=== PATIENT | female | born 1945 | race Hispanic/Latino ===

== ENCOUNTER → 2019-03-16 | Outpatient (CLI) | payer MEDICARE ==
[~2019-03-16] MED LIST: ASPIR 8181 MG PO; CARVEDILOL3.125 MG PO; CITALOPRAM HBR20 MG PO; GLIPIZIDE5 MG PO; JANUVIA100 MG PO; LANTUS100 UNITS/ SQ; LISINOPRIL10 MG PO; OMEPRAZOLE40 MG PEG; PRAVASTATIN SOD20 MG PO; PREDNISONE 30 MG; PREDNISONE10 MG PO; PYRIDOSTIGMINE PO; VITAMIN D3 PO; Z.0.ENALAPRIL MALEA2 PO; Z.0.GLYBURIDE5 MG PO; Z.0.MELOXICAM15 MG PO; Z.0.PREDNISONE10 MG PO; Z.0.SIMVASTATIN40 MG PO; Z.1.METFORMIN HCL100 PO
== END ==
LOC: CARD 09:31 → EDSEX 09:31
PROVIDERS: ATTEND Podiatrist Foot & Ankle Surgery
DX: E11.621 Type 2 diabetes mellitus with foot ulcer (principal); L97.529 Non-pressure chronic ulcer of other part of left foot with unspecified severity
CPT/HCPCS: 93925

== ENCOUNTER 2019-03-19 13:55 | Outpatient (RCR) | payer OTHER ==
[2019-03-12 16:10] LABS: HEMATOCRIT 32.5 % (38.2-49.6); HEMOGLOBIN 9.9 g/dL (14.0-18.0); MEAN CORPUSCULAR HEMOGLOBIN 27.5 pg (28-32); MEAN CORPUSCULAR HGB CONC 30.5 g/dL (31-35); MEAN CORPUSCULAR VOLUME 90.3 fL (81-99); PLATELET COUNT 173 x10e3/uL (140-360); RED CELL DISTRIBUTION WIDTH 14.5 % (11.7-14.4)
[2019-03-12 16:32] LABS: ALBUMIN 3.2 g/dL (3.5-5.0); ANION GAP 14.6 mmol/L (8-16); CREATININE, SERUM 1.66 mg/dL (0.72-1.25); POTASSIUM 4.6 mmol/L (3.5-5.1)
[2019-03-12 21:11] LABS: LYMPHOCYTES % (MANUAL) 5 % (19-48); MONOCYTES % (MANUAL) 1 % (3.4-9.0); NEUTROPHILS % (MANUAL) 91 % (40-74)
[2019-03-12 21:12] LABS: PLATELET ESTIMATE ADEQUATE; PLATELET MORPHOLOGY COMMENT NORMAL; RBC MORPHOLOGY COMMENT NORMAL
[~2019-03-19 13:55] MED LIST changes: +LIDOCAINE/PRILOCAINE 2.5-2.5% KIT ONE
[2019-03-19] MEDS ORDERED: CADEXOMER IODINE 30 GM TUBE ONE (18:12)
== END 2019-03-20 ==
LOC: EDSEX → WCC 13:55
PROVIDERS: ATTEND Podiatrist Foot & Ankle Surgery
DX: E11.621 Type 2 diabetes mellitus with foot ulcer (principal); E10.9 Type 1 diabetes mellitus without complications; L97.529 Non-pressure chronic ulcer of other part of left foot with unspecified severity; E66.01 Morbid (severe) obesity due to excess calories; Z79.4 Long term (current) use of insulin; F17.200 Nicotine dependence, unspecified, uncomplicated
CPT/HCPCS: 36415; 80053; 83036; 84134; 85007; 85027; 85651; 86140; 87071; 87075; 87186; 87205

== ENCOUNTER → 2019-04-09 | Day surgery (SDC) | payer MEDICARE ==
[2019-04-04 10:22] LABS: BASOPHILS # (AUTO) 0.1 (0.0-0.1); EOSINOPHILS # (AUTO) 0.3 (0.0-0.4); EOSINOPHILS % 3.8 % (0.0-6.0); HEMATOCRIT 33.2 % (34.2-44.1); HEMOGLOBIN 10.1 g/dL (12.0-16.0); LYMPHOCYTES # (AUTO) 1.5 (1.0-3.2); LYMPHOCYTES % 17.9 % (18.0-39.1); MEAN CORPUSCULAR HEMOGLOBIN 27.1 pg (28-32); MEAN CORPUSCULAR HGB CONC 30.4 g/dL (31-35); MONOCYTES # (AUTO) 0.7 (0.2-0.8); MONOCYTES % 8.1 % (4.4-11.3); NEUTROPHILS # (AUTO) 5.6 (2.1-6.9); NEUTROPHILS % 67.7 % (38.7-80.0); PLATELET COUNT 193 x10e3/uL (140-360); RED BLOOD COUNT 3.73 x10e6/uL (3.6-5.1); RED CELL DISTRIBUTION WIDTH 14.2 % (11.7-14.4)
[2019-04-04 10:29] LABS: INR 0.87; PROTHROMBIN TIME 12.3 seconds (11.9-14.5)
[2019-04-04 10:36] LABS: ALBUMIN 3.2 g/dL (3.5-5.0); ANION GAP 13.5 mmol/L (8-16); CALCIUM 9.7 mg/dL (8.4-10.2); CREATININE, SERUM 1.36 mg/dL (0.57-1.11); POTASSIUM 4.5 mmol/L (3.5-5.1)
[~2019-04-09] VITALS: Ht 162.6 cm; Wt 119.7 kg
[2019-04-09] VITALS (13 sets, daily range): BP systolic 101–171; BP diastolic 52–85
[~2019-04-09] MED LIST changes: +ATROPINE SULFATE 0.1 MG/ML 10ML SYR ONE; +BASAGLAR INSULIN SQ; +FENTANYL CITRATE/PF 100MCG/2 ML INJ ONE; +HEPARIN SOD/SOD CHLORIDE 2,000 ML ONE; +HYDRALAZINE HCL 20 MG/ML VIAL ONE; +IOPAMIDOL 300MG/ML 100 ML INFUS..BTL IV ONE; +LIDOCAINE HCL 2% LOCAL 20 ML VIAL ONE; -LIDOCAINE/PRILOCAINE 2.5-2.5% KIT ONE; +MIDAZOLAM HCL 2 MG/2 ML VIAL ONE; +NOVOLOG100 UNITS1 SQ; -OMEPRAZOLE40 MG PEG; +OMEPRAZOLE40 MG PO; +SODIUM CHLORIDE 0.9% 1000ML 1,000 ML ONE; +VERAPAMIL HCL 2.5 MG/ML 2 ML VIAL ONE
--- OUTSIDE RECORDS SUMMARY | 2019-04-09 07:39 | XMS REPORT ---
Author Author [facility] Address Unknown Phone Unavailable Care Team Providers Care Engraver Tender Name Role Phone Unavailable Unavailable Problems This patient has no known problems. Allergies, Adverse Reactions, Alerts This patient has no known allergies or adverse reactions. Medications This patient has no known medications. Encounters Start Date/Time End Date/Time Encounter Type Admission Type Attending [facility] Facility Care Department Encounter ID 2019-03-02 10:00:00 2019-03-02 10:00:00 Outpatient [facility] [id number]
--- OUTSIDE RECORDS SUMMARY | 2019-04-09 07:39 | XMS REPORT | Clinical Summary ---
Author Author [facility] Address Unknown Phone Unavailable Care Team Providers Care Chemist Assistant Name Role Phone Darlin Armstrong MD PCP Allergies Comments Active Allergy Reactions Severity Noted Date Azithromycin Anaphylaxis High 05/14/2016 Medications End Date Status Medication Sig Dispensed Refills Start Date Active aspirin (ECOTRIN) 81 MG Take 81 mg by 0 enteric coated tablet mouth daily. Active FLUTICASONE/VILANTEROL Inhale. 0 (BREO ELLIPTA INHL) Active carvedilol (COREG) 3.125 Take 3.125 mg 0 MG tablet by mouth 2 (two) times a day with meals. Active citalopram (CeleXA) 20 MG Take 20 mg by 0 tablet mouth daily. Active glipiZIDE (GLUCOTROL) 5 Take 5 mg by 0 MG tablet mouth 2 (two) times a day before meals. Active lisinopril Take 10 mg by 0 (PRINIVIL,ZESTRIL) 10 MG mouth daily. tablet Active metFORMIN (GLUCOPHAGE) Take 1,000 mg 0 1000 MG tablet by mouth 2 (two) times a day with meals. Active omeprazole (PriLOSEC) 40 Take 40 mg by 0 MG capsule mouth daily. Active potassium chloride Take 10 mEq 0 (K-DUR,KLOR-CON) 10 MEQ by mouth CR tablet daily. Active pravastatin (PRAVACHOL) Take 20 mg by 0 20 MG tablet mouth nightly. Active albuterol (PROVENTIL Inhale 1 puff 0 HFA;VENTOLIN HFA) 90 every 6 (six) mcg/actuation inhaler hours as needed for wheezing. Active ERGOCALCIFEROL, VITAMIN Take 1 tablet 0 D2, (VITAMIN D2 ORAL) by mouth daily. Active Problems No known active problems Social History Date Tobacco Use Types Packs/Day Years Used Never Smoker Smokeless Tobacco: Never Used Tobacco Cessation: Counseling Given: No Alcohol Use Drinks/Week oz/Week Comments No Sex Assigned at Date Recorded Not on file Industry Job Start Date Occupation Not on file Not on file Not on file Travel End Travel History Travel Start No recent travel history available. Last Filed Vital Signs Not on file Plan of Treatment Health Maintenance Due Date Last Done Comments BREAST CANCER SCREENING 1997 COLON CANCER SCREENING 1997 SHINGLES VACCINES (#1) 1997 65+ PNEUMOCOCCAL VACCINE 2012 (1 of 2 - PCV13) PNEUMOCOCCAL 2012 POLYSACCHARIDE VACCINE AGE 65 AND OVER INFLUENZA VACCINE 06/21/2019 Results Not on fileafter 04/08/2018 Insurance Type Payer Benefit Subscriber ID Effective Phone Address Plan / Dates Group HMO [employer] TEX[employer] xxxxxxxxx 2015-P [address] ([place] [place] [address] Advance Directives Patient has advance care planning documents on file. For more information, ruth powell contact: [facility] [address] [place] [address]
--- NOTE | 2019-04-09 13:00 | NUR ---
bedside report received from Saundra MURPHY. Alert oriented and appropriate, PERRLA, respirations even and unlabored to room air. Pulses x4 extremities equal and palpable. Cap fill brisk < 3 sec. Skin warm and dry integrity appears intact. IV 20g to XXX presents healthy w/o s/s of infiltration or complaint. Abdomen soft and supple. Family at bedside . Pt and family verbalizes understanding of POC. bedside monitoring in use. Right groin checked , gross firmness from dressing to medial inguinal approximately 4 cm x 12cm along inguinal line. Typical bruising color seen under skin. Findings not found when compared to left groin. Immediate pressure applied over expected arteriotomy and 2nd RN to bedside for evaluation. During focused pressure over expected arteriotomy pt began to bare down and immediately experienced a vagal response with HR decreasing o 15bpm on monitor. Atropine called for, suction of oral cavity, pt with upper limp jerking movements, family excused from room. Episode duration less than 20 seconds with pt recovering HR to mid 90's with sbp > 180. atropine withheld. additional hands to groin to reduce hematoma. pt placed in Trendelenburg position. Dr Randall notified of these findings by Sue MURPHY, continuing close monitoring
--- NOTE | 2019-04-09 13:20 | NUR ---
15 minutes of femoral pressure proved sufficient to control hematoma and to reduce to tactile evaluation. pt removed from Trendelenburg and instructed not to raise head. Family allowed back to be with patient.
--- NOTE | 2019-04-09 19:14 | Operative Report ---
DATE OF PROCEDURE: SURGEON: Rivera Randall DO PROCEDURES PERFORMED: 1. Conscious sedation, 90 minutes. 2. Abdominal aortography. 3. Third-order peripheral angiography of the left lower extremity. 4. Unilateral extremity angiography. 5. Atherectomy and percutaneous transluminal angioplasty of the left superficial femoral artery. 6. Attempted angioplasty of the left posterior tibial artery. PREPROCEDURE DIAGNOSIS: Peripheral arterial disease with ulcer. POSTPROCEDURE DIAGNOSIS: Peripheral arterial disease with ulcer. ESTIMATED BLOOD LOSS: Less than 20 mL. SPECIMENS REMOVED: None. PROCEDURE IN DETAIL: After informed consent was obtained, the patient was brought to the cardiac catheterization laboratory in a fasting and nonsedated state. Bilateral groins were prepped and draped in the usual sterile fashion. Using ultrasound guidance, the right common femoral artery was accessed via modified Seldinger technique and a 6-St Helenian sheath was placed. Abdominal aortography was performed. This Omni Flush catheter was taken up and third-order peripheral angiography was performed. Next, an Advantage wire was inserted and up and over 45 cm sheath was placed. Next, subsequent angiography revealed significant stenosis in the left superficial femoral artery and left posterior tibial artery. The patient received systemic heparin for therapeutic anticoagulation. The lesions were crossed with a Command wire, however, no microcatheter available would advance across the stenoses. Next, I pulled the microcatheter back to the popliteal and exchanged out for a Viper wire. I performed orbital atherectomy with a 2.0 solid CSI device. The SFA was angioplastied with a 5 mm Lutonix balloon. Next, I further dilated the SFA lesion with a 6 mm x 40 mm VascuTrak balloon. Final angiography revealed excellent angioplasty results of the SFA with severe diffuse disease in the left posterior tibial artery. The patient tolerated the procedure well with no immediate complications. Hemostasis was achieved via Mynx device. She was transferred back to her room in stable condition. PROCEDURAL FINDINGS: The abdominal aorta and bilateral iliac systems were patent. The left common femoral, deep formal, and proximal superficial femoral systems were patent with mild diffuse disease. The mid to distal portion of the SFA at the adductor canal had a severe 80% calcified stenosis. The popliteal, anterior tibial, and peroneal vessels were patent with mild diffuse disease. The posterior tibial had severe tandem 90% lesions in the proximal and midportion and a severe subtotal stenosis at the distal portion of the posterior tibial. IMPRESSION AND RECOMMENDATIONS: A 73-year-old presented with peripheral arterial disease and ulcerations. She underwent successful revascularization of the left superficial femoral artery. The patient will need to be brought back at a later date when superior microcatheters are available to advance down into the posterior tibial for complete revascularization. Continue dual anti-platelet therapy for at least 3 months. DO REGINA Chen/AC /[id number]
== END | disposition home or self-care (01) ==
LOC: CATH LAB 07:37
PROVIDERS: ATTEND Internal Medicine Cardiovascular Disease
DX: I70.249 Atherosclerosis of native arteries of left leg with ulceration of unspecified site (principal); I87.2 Venous insufficiency (chronic) (peripheral); I10 Essential (primary) hypertension; E78.5 Hyperlipidemia, unspecified; E11.9 Type 2 diabetes mellitus without complications; Z01.812 Encounter for preprocedural laboratory examination; Z79.82 Long term (current) use of aspirin; Z79.4 Long term (current) use of insulin; Z82.49 Family history of ischemic heart disease and other diseases of the circulatory system
CPT/HCPCS: 36415 ×2; 37225; 75625; 75710; 80053; 82948; 85025; 85610; C1724; C1760; C1769 ×3; C1887 ×2; C2623; J0360; J2001; J2250; J7030; Q9967; 36247; 37186; J3010